=== PATIENT | male | born 1995 | race Caucasian/White ===

== ENCOUNTER 2016-12-08 16:21 | Emergency (ER) | payer SELFPAY ==
[~2016-12-08] VITALS: Ht 180.3 cm; Wt 86.2 kg
[~2016-12-08 16:21] MED LIST: ZITHROMAX250 MG PO
[2016-12-08] MEDS ORDERED: NAPROSYN500 MG PO (17:18)
== END 2016-12-08 17:19 | disposition home or self-care (01) ==
LOC: ED 16:21
DX: R07.81 Pleurodynia (principal)

== ENCOUNTER 2017-08-28 08:45 | Emergency (ER) | payer SELFPAY ==
[~2017-08-28] VITALS: Ht 154.9 cm; Wt 72.6 kg
[~2017-08-28 08:45] MED LIST changes: +NAPROSYN500 MG PO
[2017-08-28] MEDS ORDERED: PREDNISONE10 MG PO (09:00)
[2017-08-28] MEDS ORDERED: ROBITUSSIN DM 105 ML PO (09:00)
[2017-08-28] MEDS ORDERED: CLARITIN10 MG PO (09:00)
[2017-08-28] MEDS ORDERED: FLONASE ALLERG9.9 ML NAS (09:00)
== END 2017-08-28 10:28 | disposition home or self-care (01) ==
LOC: ED 08:45
DX: B34.9 Viral infection, unspecified (principal); R03.0 Elevated blood-pressure reading, without diagnosis of hypertension; F17.200 Nicotine dependence, unspecified, uncomplicated

== ENCOUNTER 2017-12-14 17:37 | Emergency (ER) | payer SELFPAY ==
[~2017-12-14] VITALS: Ht 180.3 cm; Wt 77.1 kg
[~2017-12-14 17:37] MED LIST changes: +CLARITIN10 MG PO; +FLONASE ALLERG9.9 ML NAS; +PREDNISONE10 MG PO; +ROBITUSSIN DM 105 ML PO
[2017-12-14] MEDS ORDERED: ROBITUSSIN DM 105 ML PO (18:21)
[2017-12-14] MEDS ORDERED: PREDNISONE10 MG PO (18:21)
[2017-12-14] MEDS ORDERED: FLONASE ALLERG9.9 ML NAS (18:21)
[2017-12-14] MEDS ORDERED: CLARITIN10 MG PO (18:21)
== END 2017-12-14 18:57 | disposition home or self-care (01) ==
LOC: ED 17:37
DX: J20.9 Acute bronchitis, unspecified (principal); R03.0 Elevated blood-pressure reading, without diagnosis of hypertension; F17.200 Nicotine dependence, unspecified, uncomplicated

== ENCOUNTER 2017-12-21 19:37 | Emergency (ER) | payer SELFPAY ==
[~2017-12-21] VITALS: Ht 180.3 cm; Wt 81.6 kg
[2017-12-21 20:31] LABS: BILIRUBIN NEGATIVE (NEGATIVE); BLOOD NEGATIVE (NEGATIVE); CLARITY SL CLOUDY (CLEAR); COLOR YELLOW (YELLOW); GLUCOSE NEGATIVE (NEGATIVE); KETONE NEGATIVE (NEGATIVE); LEUKO ESTERASE NEGATIVE (NEGATIVE); NITRITE NEGATIVE (NEGATIVE); UROBILINOGEN 0.2 E.U./dl (0.2-1.0)
[2017-12-21 20:32] LABS: BASO % 0.2 % (0.0-1.0); EOS # 0.1 10*3/uL (0.0-0.4); EOS % 0.8 % (1.0-4.0); HEMATOCRIT 46.8 % (42.0-52.0); LYMPH # 2.1 10*3/uL (1.3-4.4); LYMPH % 15.1 % (27.0-41.0); MEAN CELL VOLUME 88.8 fl (80.0-94.0); MEAN CORPUSCULAR HGB 30.4 pg (27.0-31.0); MEAN CORPUSCULAR HGB CONC 34.2 g/dl (33.0-37.0); MEAN PLATELET VOLUME 8.8 fl (9.6-12.3); MONO # 0.6 10*3/uL (0.1-1.0); MONO % 4.2 % (3.0-9.0); NEUT # 11.2 10*3/uL (2.3-7.9); NEUT % 79.3 % (47.0-73.0); PLATELET COUNT AUTOMATED 240 10*3/uL (130-400); RED BLOOD COUNT 5.27 10*6/uL (4.50-5.90); RED CELL DISTRI WIDTH 12.6 % (0-14.5); WHITE BLOOD COUNT 14.2 10*3/uL (4.8-10.8)
[2017-12-21] MEDS ORDERED: ZOFRAN ODT4 MG SL (20:34)
[2017-12-21 20:39] LABS: BACTERIA TRACE; EPITHELIAL CELLS 0-2
[2017-12-21 20:49] LABS: ALKALINE PHOSPHATASE 62 U/L (45-117); BUN 14 mg/dl (7-24); CHLORIDE 103 mmol/L (98-107); CREATININE 1.03 mg/dL (0.70-1.30); POTASSIUM 3.7 mmol/L (3.5-5.1); SGOT/AST 18 IU/L (3-35); SGPT/ALT 21 U/L (12-78); SODIUM 138 mmol/L (136-145); TOTAL PROTEIN 7.8 gm/dL (6.4-8.2)
== END 2017-12-21 21:21 | disposition home or self-care (01) ==
LOC: ED 19:37
PROVIDERS: Nurse Practitioner Family
DX: K29.70 Gastritis, unspecified, without bleeding (principal); F17.200 Nicotine dependence, unspecified, uncomplicated

== ENCOUNTER 2018-04-30 12:34 | Emergency (ER) | payer SELFPAY ==
[~2018-04-30] VITALS: Ht 180.3 cm; Wt 77.1 kg
[~2018-04-30 12:34] MED LIST changes: +ZOFRAN ODT4 MG SL
[2018-04-30 12:57] LABS: BILIRUBIN NEGATIVE (NEGATIVE); BLOOD TRACE-LYSED (NEGATIVE); CLARITY CLEAR (CLEAR); COLOR YELLOW (YELLOW); GLUCOSE NEGATIVE (NEGATIVE); KETONE NEGATIVE (NEGATIVE); LEUKO ESTERASE 1+ (NEGATIVE); NITRITE NEGATIVE (NEGATIVE); PH 6.5 (5.0-9.0); UROBILINOGEN 0.2 E.U./dl (0.2-1.0)
[2018-04-30 13:42] LABS: BACTERIA 2+; WBC 41-50 wbc/hpf (0-5)
== END 2018-04-30 13:49 | disposition home or self-care (01) ==
LOC: ED 12:34
PROVIDERS: Nurse Practitioner Family
DX: Z11.3 Encounter for screening for infections with a predominantly sexual mode of transmission (principal); R03.0 Elevated blood-pressure reading, without diagnosis of hypertension; Z79.899 Other long term (current) drug therapy

== ENCOUNTER 2018-09-16 11:09 | Emergency (ER) | payer SELFPAY ==
[~2018-09-16] VITALS: Ht 180.3 cm; Wt 81.6 kg
[2018-09-16] MEDS ORDERED: Motrin,Rufen800 MG PO (12:54)
== END 2018-09-16 14:26 | disposition home or self-care (01) ==
LOC: ED 11:09
DX: S90.31XA Contusion of right foot, initial encounter (principal); M79.672 Pain in left foot; F17.200 Nicotine dependence, unspecified, uncomplicated; W22.01XA Walked into wall, initial encounter; Y93.39 Activity, other involving climbing, rappelling and jumping off; Y92.89 Other specified places as the place of occurrence of the external cause; Y99.8 Other external cause status

== ENCOUNTER 2022-07-30 21:17 | Emergency (ER) | payer SELFPAY ==
[~2022-07-30] VITALS: Ht 180.3 cm; Wt 79.4 kg
[~2022-07-30 21:17] MED LIST changes: +CHANTIX1 M1 PO; +Motrin,Rufen800 MG PO
[2022-07-30 22:22] LABS: BASO % 0.3 % (0.0-1.0); EOS % 0.1 % (1.0-4.0); HEMATOCRIT 43.6 % (42.0-52.0); LYMPH # 1.3 10*3/uL (1.3-4.4); LYMPH % 10.8 % (27.0-41.0); MEAN CELL VOLUME 91.4 fl (80.0-94.0); MEAN CORPUSCULAR HGB CONC 33.9 g/dl (33.0-37.0); MONO # 0.8 10*3/uL (0.1-1.0); MONO % 6.4 % (3.0-9.0); NEUT # 9.9 10*3/uL (2.3-7.9); NEUT % 82.1 % (47.0-73.0); PLATELET COUNT AUTOMATED 214 10*3/uL (130-400); RED BLOOD COUNT 4.77 10*6/uL (4.50-5.90); RED CELL DISTRI WIDTH 12.8 % (0-14.5)
[2022-07-30 22:38] LABS: ALKALINE PHOSPHATASE 63 U/L (45-117); BUN 10 mg/dl (7-24); CHLORIDE 109 mmol/L (98-107); CREATININE 0.77 mg/dL (0.70-1.30); LIPASE 51 U/L (73-393); POTASSIUM 3.5 mmol/L (3.5-5.1); SGOT/AST 15 IU/L (3-35); SGPT/ALT 23 U/L (12-78); SODIUM 138 mmol/L (136-145); TOTAL PROTEIN 7.3 gm/dL (6.4-8.2)
[2022-07-30 23:36] LABS: BILIRUBIN Negative (Negative); BLOOD 3+ (Negative); CLARITY Clear (Clear); COLOR Yellow (Yellow); GLUCOSE Negative (Negative); KETONE Negative (Negative); LEUKO ESTERASE Negative (Negative); NITRITE Negative (Negative); RBC 31-40 rbc/hpf (0-2); UROBILINOGEN 0.2 E.U./dl (0.0-1.0)
[2022-07-30 23:37] LABS: WBC 0-2 wbc/hpf (0-5)
== END 2022-07-30 23:47 | disposition home or self-care (01) ==
LOC: ED 21:17
PROVIDERS: Physician Assistant
DX: K52.9 Noninfective gastroenteritis and colitis, unspecified (principal)

== ENCOUNTER 2022-11-12 14:53 | Emergency (ER) | payer MEDICAID ==
[~2022-11-12] VITALS: Ht 180.3 cm; Wt 79.4 kg
[2022-11-12] MEDS ORDERED: NAPROSYN500 MG PO (21:19)
== END 2022-11-12 21:48 | disposition home or self-care (01) ==
LOC: ED 14:53
DX: M25.461 Effusion, right knee (principal)

== ENCOUNTER 2023-09-07 13:50 | Emergency (ER) | payer MEDICAID ==
[~2023-09-07] VITALS: Ht 180.3 cm; Wt 81.6 kg
[2023-09-07] MEDS ORDERED: CEPHALEXIN500 M1 PO (15:10)
== END 2023-09-07 15:57 | disposition home or self-care (01) ==
LOC: ED 13:50
DX: S61.411A Laceration without foreign body of right hand, initial encounter (principal); W45.0XXA Nail entering through skin, initial encounter; Y93.89 Activity, other specified; Y92.89 Other specified places as the place of occurrence of the external cause; Y99.8 Other external cause status

== ENCOUNTER 2024-03-27 22:16 | Emergency (ER) | payer SELFPAY ==
[~2024-03-27] VITALS: Ht 177.8 cm; Wt 81.6 kg
[~2024-03-27 22:16] MED LIST changes: +CEPHALEXIN500 M1 PO
[2024-03-27] MEDS ORDERED: Lidocaine Hydrochloride 2% 10 ML AMP SC ONE (22:30)
[2024-03-27] MEDS ORDERED: LIDOCAINE HCL/EPINEPHRINE 50 ML VIAL ONE (22:47)
[2024-03-27] MEDS ORDERED: CEPHALEXIN500 M1 PO (23:34)
[2024-03-27] MEDS ORDERED: Bacitracin Zinc 14 GM TUBE T ONE (23:35)
[2024-03-27] MEDS ORDERED: CEPHALEXIN 500 MG CAP PO ONE (23:40)
== END 2024-03-27 23:47 | disposition home or self-care (01) ==
LOC: ED 22:16
DX: S21.212A Laceration without foreign body of left back wall of thorax without penetration into thoracic cavity, initial encounter (principal); Z87.891 Personal history of nicotine dependence; W20.8XXA Other cause of strike by thrown, projected or falling object, initial encounter; Y93.89 Activity, other specified; Y92.89 Other specified places as the place of occurrence of the external cause; Y99.8 Other external cause status